=== PATIENT | male | born 1945 | race Two or more races ===

== ENCOUNTER 2017-01-07 20:55 | Emergency (ER) | payer MEDICARE, OTHER ==
[~2017-01-07] VITALS: Ht 182.9 cm; Wt 77.1 kg
[2017-01-07 21:13] LABS: BASOPHILS # (AUTO) 0.1 /CMM (0.0-0.2); BASOPHILS % (AUTO) 0.9 % (0.0-2.0); DIFF TOTAL % 100 %; EOSINOPHILS # (AUTO) 0.1 /CMM (0.0-0.7); EOSINOPHILS % (AUTO) 1.4 % (0.0-6.0); HEMATOCRIT 37 % (39-51); HEMOGLOBIN 12.7 g/dL (13.5-17.5); MEAN CORPUSCULAR HEMOGLOBIN 30 PG (26.0-33.0); MEAN CORPUSCULAR HGB CONC 34 g/dl (31.0-36.0); MEAN CORPUSCULAR VOLUME 88 fL (80-96); MONOCYTES # (AUTO) 0.5 /CMM (0.1-1.30); MONOCYTES % (AUTO) 8.1 % (2.0-12.0); NEUTROPHILS # (AUTO) 3.2 /CMM (1.8-8.9); NEUTROPHILS % (AUTO) 55.6 % (43.0-81.0); PLATELET COUNT (AUTO) 181 /CMM (150-450); RED BLOOD CELL COUNT(AUTO) 4.23 MIL/uL (4.5-6.0); WHITE BLOOD COUNT (AUTO) 5.9 K/uL (4.3-11.0)
[2017-01-07 21:27] LABS: KETONES,URINE Trace (NEGATIVE); LEUKOCYTE ESTERASE ,URINE Negative (NEGATIVE)
[2017-01-07 21:30] LABS: ALANINE AMINOTRANSFERASE 22 U/L (12-78); ALBUMIN 3.4 g/dL (3.4-5.0); ANION GAP 11 (5-14); ASPARTATE AMINOTRANSFERASE 18 U/L (15-37); BILIRUBIN,DIRECT 0.1 mg/dL (0.0-0.2); BILIRUBIN,TOTAL 0.2 mg/dL (0.2-1.0); CALCIUM, SERUM 8.9 mg/dL (8.5-10.1); CARBON DIOXIDE 31 mmol/L (21-32); CHLORIDE 108 mmol/L (98-107); CREATININE 0.9 mg/dL (0.6-1.3); GFR 84 mL/min (>60); GLUCOSE 128 mg/dL (74-106); INDIRECT BILIRUBIN 0.1 mg/dL (0.0-1.1); POTASSIUM 4.6 mmol/L (3.5-5.1); SODIUM SERUM 145 mmol/L (136-145); TOTAL PROTEIN, SERUM 6.4 g/dL (6.4-8.2); UREA NITROGEN, BLOOD 27 mg/dL (7-18)
[2017-01-07] MEDS ORDERED: IV NS 0.9% 1,000 ML BAG IV ONE ×2 (21:30)
[2017-01-07 21:32] LABS: TROPONIN I < 0.017 ng/mL (0.00-0.056)
[2017-01-07 21:33] LABS: ADD UA MICROSCOPIC YES
[2017-01-07 21:41] LABS: ADD URINE CULTURE YES; RBC,URINE 0-2 /HPF (0-2); WBC,URINE 0-2 /HPF (0-3)
[2017-01-07 21:50] LABS: LACTIC ACID 1.3 mmol/L (0.4-2.0)
[2017-01-07 22:05] VITALS: BP 114/71
== END 2017-01-07 22:06 | disposition home or self-care (01) ==
LOC: ER 20:59
DX: R41.82 Altered mental status, unspecified (principal); E78.00 Pure hypercholesterolemia, unspecified; I10 Essential (primary) hypertension; F32.9 Major depressive disorder, single episode, unspecified
CPT/HCPCS: 36415; 71010; 80048; 80076; 81001; 83605; 84484; 85025; 87040 ×2; 87086; 93005; 99285; A4606; 81000-TC; 87186-TC; Z7610